=== PATIENT | female | born 1985 | race Caucasian/White ===

== ENCOUNTER 2016-10-13 10:53 | Emergency (ER) | payer OTHER ==
[~2016-10-13] VITALS: Ht 157.5 cm; Wt 44.5 kg
[~2016-10-13 10:53] MED LIST: MULT1TAB59
[2016-10-13 10:56] VITALS: Ht 157.5 cm; Wt 44.5 kg
[2016-10-13 12:12] LABS: ADD UMIC YES; UR ASCORBIC ACID NEGATIVE (NEGATIVE); UR BACTERIA MODERATE /HPF (NONE SEEN); UR BILIRUBIN (Dip) NEGATIVE (NEGATIVE); UR BLOOD (Dip) 3+ mg/dL (NEGATIVE); UR CLARITY CLOUDY (CLEAR); UR COLOR YELLOW (YELLOW); UR GLUCOSE (Dip) NEGATIVE (NEGATIVE); UR KETONES (Dip) NEGATIVE (NEGATIVE); UR LEUKOCYTE ESTERASE (Dip) 3+ Leu/ul (NEGATIVE); UR NITRITE (Dip) NEGATIVE (NEGATIVE); UR RBC 2 /HPF (0-5); UR SPECIFIC GRAVITY (Dip) 1.003 (1.003-1.030); UR TOTAL PROTEIN (Dip) NEGATIVE (NEGATIVE); UR UROBILINOGEN (Dip) NEGATIVE (NEGATIVE); UR WBC CLUMPS MANY /HPF (NONE SEEN)
--- NOTE | 2016-10-13 12:20 | ERD ---
ER Documentation Chief Complaint Date/Time DATE: 10/13/16 Chief Complaint Pain with urination HPI The patient is a 31-year-old female who presents to the Emergency Department with complaint of pain upon urination for the past week. The patient reports that approximately one week ago she began to experience symptoms of dysuria, urinary frequency, urinary urgency, hesitancy and hematuria. She admits to mild associated suprapubic abdominal pressure-like pain as well. The patient's have remained constant, despite increased fluid intake. She denies any vaginal bleeding or new vaginal discharge. Denies recent unprotected sexual intercourse. Denies fevers, sweats, chills, nausea, vomiting, flank pain, diarrhea. Denies any history of similar symptoms in the past. No other complaints at this time. ROS All systems reviewed and are negative except as per history of present illness. Medications Home Meds Active Scripts Phenazopyridine Hcl* (Pyridium*) 200 Mg Tab, 200 MG PO TID Y for URINARY PAIN for 2 Days, #6 TAB Prov:CHRISTIANO DELGADO PA-C 10/13/16 Nitrofurantoin Monohyd Macrocr* (Macrobid*) 100 Mg Capsr, 100 MG PO BID for 7 Days, CAP Prov:CHRISTIANO DELGADO PA-C 10/13/16 Reported Medications Multivitamins* (Multivitamins*) 1 Tab Tablet 01/21/11 Allergies Allergies: Coded Allergies: No Known Drug Allergies (Verified Allergy, Mild, 10/13/16) PMhx/Soc History of Surgery: Yes (CSECTION) Hx Miscellaneous Medical Probl: No (NO OTHER MEDICAL PROBLEMS) Hx Alcohol Use: No Hx Substance Use: No Hx Tobacco Use: No Smoking Status: Never smoker Physical Exam Vitals Vital Signs Date Time Temp Pulse Resp B/P Pulse Ox O2 Delivery O2 Flow Rate FiO2 10/13/16 12:32 98.2 79 18 112/71 100 Room Air 10/13/16 10:56 97.8 73 18 105/66 99 Physical Exam GENERAL: Well-developed, well-nourished, in no acute distress. HEENT: Head is normocephalic, atraumatic. No scleral pallor or icterus. Conjunctiva pink. Moist mucous membranes. NECK: Supple. Full range of motion. RESPIRATORY: Lungs are clear to auscultation bilaterally. No rales, rhonchi or wheezing. Equal breath sounds. Normal expiratory effort. CARDIOVASCULAR: Regular rate and rhythm. S1 and S2 normal. GASTROINTESTINAL: Abdomen is soft, nontender, and nondistended. No guarding, no rebound tenderness. Normal bowel sounds. FLANK: No CVA tenderness, no mass or swelling. BACK: No midline tenderness. EXTREMITIES: No clubbing, cyanosis, or edema. Normal skin perfusion. Moving all extremities. No focal swelling or erythema. Distal pulses are palpable, 2+ bilaterally. Capillary refill is less than 2 seconds. NEUROLOGIC: The patient is alert, awake, and oriented x 3. No focal neurologic deficits. INTEGUMENT: Skin is clean, dry and intact. No rashes, lesions or petechiae present. Normal turgor. PSYCHIATRIC: Appropriate; Cooperative. Results 24 hrs Laboratory Tests Test 10/13/16 11:28 Urine Color YELLOW Urine Clarity CLOUDY Urine pH 7.0 Urine Specific Arnold 1.003 Urine Ketones NEGATIVEmg/dL Urine Nitrite NEGATIVEmg/dL Urine Bilirubin NEGATIVEmg/dL Urine Urobilinogen NEGATIVEmg/dL Urine Leukocyte Esterase 3+Gunnar/ul Urine Microscopic RBC 2/HPF Urine Microscopic WBC > 182/HPF Urine Bacteria MODERATE/HPF Urine Hemoglobin 3+mg/dL Urine Glucose NEGATIVEmg/dL Urine Total Protein NEGATIVEmg/dl Procedures/MDM This is a 31-year-old female who presents to the Emergency Department with dysuria, frequency, urgency and suprapubic abdominal discomfort . Differentials that were considered today include cystitis, pyelonephritis, interstitial cystitis, genital herpes, atrophic vaginitis, pelvic inflammatory disease, nephrolithiasis, cervicitis, urinary retention, urinary incontinence, , ectopic , urinary tract infection, vulvovaginitis, appendicitis, gastroenteritis, perinephric or renal abscess, constipation, ovarian torsion, gastritis, neoplastic disease, among other emergent medical conditions in my thought process. I have low clinical suspicion for acute or surgical abdomen as the patient is non-toxic and well appearing, with stable vital signs, and presents with no tenderness in any of the four abdominal quadrants. 3+ urine leukocyte esterase, > 182 WBCs and 3+ urine hemoglobin were noted on urinalysis, concerning for a likely urinary tract infection. Urine culture is sent. Negative urine . She has not had fever or any constitutional symptoms, no flank pain or CVA tenderness, and therefore I doubt pyelonephritis. No new vaginal discharge or pelvic pain, and therefore I doubt cervicitis, PID, TOA. After rest, the patient reports no new complaints. At this time, the patient will be sent home with a prescription for Macrobid and Pyridium as treatment for the urinary tract infection and symptoms, and strict return precautions for signs of deteriorating or worsening condition. The patient is advised to follow up with her primary care provider in 2-3 days for reevaluation and further management, or return to the ER sooner for any new or worsening symptoms. Other reasons to return to the ER sooner include worsening abdominal pain, persistent nausea or vomiting, persistent high fevers greater than 100.4 F, or any other signs of deteriorating condition. I shared my medical decision making and plan with the patient at length and in great detail, and the patient verbally understands and agrees with the plan for further observation and care as an outpatient. At the time of discharge all questions were answered. Departure Diagnosis: Primary Impression: Acute cystitis with hematuria Condition: Stable Patient Instructions: Understanding Urinary Tract Infections (UTIs), Urinary Tract Infections in Women Additional Instructions: Call your primary care doctor TOMORROW for an appointment during the next 2-3 days.See the doctor sooner or return here if your condition worsens before your appointment time. CHRISTIANO DELGADO PA-C Oct 13, 2016 12:20
[2016-10-13] MEDS ORDERED: PHEN-538 PO (12:21)
[2016-10-13] MEDS ORDERED: NITR-58 PO (12:21)
[2016-10-13 12:32] VITALS: BP 112/71; PULSE 79; RESP 18; TEMP 98.2
== END 2016-10-13 12:32 | disposition home or self-care (01) ==
LOC: FTE 10:53
DX: N30.01 Acute cystitis with hematuria (principal)
CPT/HCPCS: 81001; 87086; Z7502; 99283